=== PATIENT | male | born 1950 | race Caucasian/White ===

== ENCOUNTER → 2018-10-25 09:24 | Outpatient (CLI) | payer OTHER, SELFPAY ==
[2018-10-25 12:21] LABS: AST(SGOT) 18 U/L (15-37); Alanine Aminotransfer ALT/SGPT 29 U/L (16-61); Albumin, Serum 3.8 g/dL (3.2-5.0); Alkaline Phosphatase 87 U/L (45-117); Bilirubin, Direct 0.13 mg/dL (0.00-0.30); Cholesterol 195 mg/dL (200); Globulin 3.2 g/dL (2.2-4.2); High Density Lipoprotein 55 mg/dL; Triglycerides 99 mg/dL; Very Low Density Lipoprotein 20 mg/dL (5-40)
== END ==
PROVIDERS: Family Provider Family Medicine; PCP Family Medicine; Referring Provider Physician Assistant Medical; Visit Provider Physician Assistant Medical
DX: E78.5 Hyperlipidemia, unspecified (principal); Z79.899 Other long term (current) drug therapy
CPT/HCPCS: 36415; 80061; 80076

== ENCOUNTER → 2018-11-11 12:10 | Outpatient (CLI) | payer MEDICARE, OTHER, SELFPAY ==
[2018-11-11 14:23] LABS: Absolute Lymphocyte Count 1.21 X10^3/ul (0.83-4.51); Absolute Neutrophil Count 4.5 X10^3/uL (2.0-7.7); Basophil# 0.02 X10^3/uL; Basophil% 0.3 % (0-1); Eosinophil# 0.11 X10^3/uL; Eosinophils% 1.7 % (0-5); Hematocrit 43.9 % (40-54); Hemoglobin 14.4 g/dl (13.0-16.5); Lymphocyte # 1.21 X10^3/ul (4.0); Lymphocyte % 18.4 % (19-41); Mean Corp Hgb Conc 32.8 g/gl (32-36); Mean Corpuscular Hgb 30.9 pg (27.0-32.0); Mean Corpuscular Volume 94.2 fL (80-94); Mean Platelet Vol. 10.5 fl (6.2-12.0); Monocyte# 0.75 X10^3/uL; Monocyte% 11.4 % (0-10); Neutrophil # 4.49 X10^3/uL (2.7-7.7); Platelet Count 182 K/mm3 (150-450); RBC Distribution Width CV 14.5 % (11.6-14.6); RBC Distribution Width SD 48.4 fl (35.1-43.9); Red Blood Count 4.66 M/mm3 (4.6-6.2); White Blood Count 6.6 K/mm3 (4.4-11.0)
[2018-11-11 14:26] LABS: Cholesterol 158 mg/dL (200); High Density Lipoprotein 50 mg/dL; PSA,Total - Annual Screen 0.54 ng/mL (0.00-4.00); Triglycerides 82 mg/dL; Very Low Density Lipoprotein 16 mg/dL (5-40)
[2018-11-11 14:28] LABS: POSITIVE COUNT NO; POSITIVE DIFFERENTIAL NO; POSITIVE MORPHOLOGY NO
== END ==
PROVIDERS: Family Provider Family Medicine; PCP Family Medicine; Visit Provider Family Medicine
DX: Z00.00 Encounter for general adult medical examination without abnormal findings (principal)
CPT/HCPCS: 36415; 80061; 84153; 85025; G0103

== ENCOUNTER 2019-09-08 05:31 | Day surgery (SDC) | payer MEDICARE, OTHER, SELFPAY ==
--- NOTE | 2019-08-11 05:00 | HP_ITS ---
Intake Vital Signs 08/11/19 Height 5 ft 10 in 08/11/19 Weight: 215 lb 9 oz 08/11/19 Body Mass Index (BMI) 30.9 08/11/19 Blood Pressure 152/67 H 08/11/19 Blood Pressure Location Rt brachial 08/11/19 Respiratory Rate 20 H 08/11/19 Pulse Rate 84 08/11/19 Pulse Ox 97 Intake Visit Reasons: Hernia Chief Complaint: left inguinal pain Audit Mgr Required: No Is patient in pain?: No Allergies benzalkonium chloride [From Merthiolate (benzalkonium)] Allergy (Mild, Verified 08/11/19 15:35) rash Medications atorvastatin 10 mg tablet 10 mg PO DAILY 08/11/19 [History Confirmed 08/11/19] multivitamin,tj-sesw-zcmnoigh tablet 1 tab PO DAILY 08/11/19 [History Confirmed 08/11/19] tamsulosin 0.4 mg capsule 0.4 mg PO DAILY #30 cap 08/11/19 [Rx Confirmed 08/11/19] [facility] Medical History (Updated 08/11/19 @ 16:57 by Claus Sevilla MD) Inguinal hernia of left side without obstruction or gangrene (Acute) Hyperlipidemia (Acute) Osteoarthritis (Acute) Sleep apnea (Acute) Surgical History (Updated 08/11/19 @ 15:33 by Karen Garcia) History of appendectomy (Acute) History of arthroscopy of both knees (Acute) History of bilateral carpal tunnel release (Acute) History of bilateral cataract extraction (Acute) History of colonoscopy (Acute) History of rotator cuff surgery (Acute) Family History (Updated 08/11/19 @ 15:33 by Karen Garcia) Other Colon cancer Diabetes Heart disease Hypertension Social History (Updated 08/11/19 @ 17:00 by Claus Sevilla MD) Smoking Status: Never smoker HPI HPI HPI: ORTIZ FARIA, is a 69 M who presents to the office today for HPI HPI Surgical H&P: Yes HPI: ORTIZ FARIA, is a 69 M who presents to the office today for surgical consultation regarding left testicular pain. This is been going on for 4 to 6 months. Feels discomfort and what he feels is the left testicle but when he goes to palpate the area there is no mass or particular tenderness. He has no dysuria. He rarely has nocturia. He does note that he has history of an enlarged prostate. There is been no fever chills or sweats. His most recent colonoscopy was November 2018. By his report a small polyp was removed that was benign with a follow-up colonoscopy scheduled for 3 to 4 years. ROS General General: No weight change, appetite, fatigue, colon cancer, breast cancer or weakness HEENT HEENT: No difficulty swallowing, eye injury, eye surgery, swollen glands or hoarseness Endo Endocrine: No thyroid disease, diabetes mellitus, thyroid cancer, Hair loss, heat intolerance or cold intolerance Musc Musculoskeletal: Yes arthritis; no back problems, rheumatoid arthritis, gout or joint pain Cardio Cardiovascular: No murmur, pacemaker, heart disease, atrial fibrillation, high blood pressure, heart attack, heart stent, palpitations, shortness of breat with exertion or chest pain Resp Respiratory: No shortness of breath, Yes sleep apnea, No cough, No COPD, No asthma, No emphysema, No wheezing Gastro Gastrointestinal: No abdominal pain, No nausea or vomiting, No diarrhea, No constipation, No blood in stool, No acid reflux, No hemorrhoids, No ulcers, No gallbladder problem, No black,tarry stools Mario Hematologic: No blood thinners, No blood disorders, No bleeding, No anemia, No blood clots Neuro Neurologic: No weakness Exam Const General: cooperative, healthy appearing, comfortable, no acute distress Nutritional Appearance: overweight Orientation: alert, awake, oriented x3 HENMT Head: normal to inspection Resp Effort & Inspection: normal respiratory effort Auscultation: clear to auscultation bilaterally Cardio Rate: regular rate Rhythm: regular rhythm Heart Sounds: no murmurs GI Palpation: soft, no hepatosplenomegaly Auscultation: normal bowel sounds Other: Atrophic right testicle as compared to the left no inguinal defect on the right slightly tender indirect easily palpable defect on the left. Reducible Skin General: no rashes or lesions noted Neuro Cognition: normal cognition Extrem General: no calf tenderness Psych Affect: normal affect Assessment & Plan Problems 1. Inguinal hernia of left side without obstruction or gangrene K40.90 Plan Indirect left inguinal hernia, symptomatic The patient states that he tends to be very active soon postoperatively. I am recommending to him a laparoscopic left inguinal herniorrhaphy with mesh. The patient states that he does have enlarged prostate so I would like to start him on Flomax 0.4 mg nightly for at least 2 weeks preoperatively. We have discussed the technique, benefits, risks, alternatives. He has had an opportunity to ask and have questions answered. We will schedule and proceed at a time of his discretion. [place] weeks. CC: Dr. Bhavik Sevilla M.D., F.A.C.S. Medications New: tamsulosin (Flomax) 0.4 mg PO DAILY 30 caps 0RF Coding Level of Care Code Off vis,new,level 3 Diagnoses Inguinal hernia of left side without obstruction or gangrene K40.90 08/11/19 1700 <Electronically signed by Claus damon MD> Date _ Claus Sevilla MD I have re-examined the patient. There are no clinical changes since date of exam.
[2019-08-11 15:33] VITALS: BMI 30.9
--- NOTE | 2019-09-04 09:44 | EKG12_ITS ---
Test Reason : PRE OP Blood Pressure : / mmHG Vent. Rate : 049 BPM Atrial Rate : 049 BPM P-R Int : 180 ms QRS Dur : 106 ms QT Int : 432 ms P-R-T Axes : 059 006 025 degrees QTc Int : 390 ms Marked sinus bradycardia Abnormal ECG Confirmed by VALERIY CHOI, JABARI ([id number]), film editor supervisor SUSANNE GOINS ([id number]) on 09/08/2019 8:36:02 AM Referred By: Claus Sevilla Confirmed By:IRMA CROOKS MD
[2019-09-04 10:56] LABS: Hematocrit 43.7 % (40-54); Hemoglobin 14.2 g/dL (13.0-16.5); Mean Corp Hgb Conc 32.5 g/dL (32-36); Mean Corpuscular Hgb 31.1 pg (27.0-32.0); Mean Corpuscular Volume 95.8 fL (80-94); Mean Platelet Vol. 10.4 fl (6.2-12.0); Platelet Count 174 K/mm3 (150-450); RBC Distribution Width CV 13.6 % (11.6-14.6); RBC Distribution Width SD 47.9 fl (35.1-43.9); Red Blood Count 4.56 M/mm3 (4.6-6.2); White Blood Count 4.4 K/mm3 (4.4-11.0)
[2019-09-04 11:20] LABS: AST(SGOT) 22 U/L (15-37); Alanine Aminotransfer ALT/SGPT 26 U/L (16-61); Albumin, Serum 3.8 g/dL (3.2-5.0); Alkaline Phosphatase 77 U/L (45-117); Anion Gap 9 (5-15); BUN 22 mg/dL (7-18); BUN/Creat Ratio 20.6 RATIO (10-20); Bilirubin, Direct 0.11 mg/dL (0.00-0.30); Calcium,Total 9.1 mg/dL (8.5-10.1); Chloride 106 mmol/L (98-107); Creatinine, Serum 1.07 mg/dL (0.70-1.30); EST Glomerular Filtration Rate 73 mL/min (>60); Est Glom Filt Rate - Afr Amer 88 mL/min (>60); Globulin 3.5 g/dL (2.2-4.2); Glucose 109 mg/dL (74-106); Potassium 4.2 mmol/L (3.5-5.1); Protein, Total 7.3 g/dL (6.4-8.2); Sodium Level 144 mmol/L (136-145)
[2019-09-08] VITALS (7 sets, daily range): BP systolic 107–133; BP diastolic 64–71; PULSE 46–53; RESP 16–18; TEMP 36.1–36.6; O2SAT 95–100; BMI 32.5
[2019-09-08] MEDS: Lactated Ringers 1,000 ML 100 ML IV ×2 (06:04→08:00)
[2019-09-08] MEDS: Cefazolin 2 GM in 0.9% Normal Saline 100 ML IV (07:03)
--- NOTE | 2019-09-08 07:08 | PCM.DC.GS ---
Discharge Diet: Light diet - advance as tolerated - if you have questions about your diet instructions, please talk to you doctor. Discharge Activity: May Not Drive - for 3-5 days or while taking narcotic pain medicine. May shower in (days): 1 Lifting Restrictions: 10 pounds Call your doctor if your incision/area has: Continuous Slow Oozing, Sudden Increased Bleeding, Increased Pain/ Swelling, Increased Redness, Foul Smelling Discharge Call your doctor if you observe: Fever of 101 or Higher Suture Line Care: Avoid Pulling/Pushing, Avoid Pinching/Bending Additional Dressing/Incision Instructions:: Change or remove dressing in 4 days. Leave steri-strips in place for 1 week. Additional Instructions: Starting today please initiate a daily fiber supplementation like Metamucil, Citrucel, FiberCon, or generic. A large tablespoon with a full glass of water. Please continue this daily in order to avoid constipation. Allergies/Adverse Reactions: Allergies benzalkonium chloride [From Merthiolate (benzalkonium)] Allergy (Mild, Verified 09/08/19 05:50) rash Medications to take at Discharge atorvastatin 10 mg tablet 10 mg PO DAILY 08/11/19 multivitamin,qx-voia-aahbuhhu tablet 1 tab PO DAILY 08/11/19 tamsulosin 0.4 mg capsule 0.4 mg PO DAILY #30 cap 08/11/19 Hydrocodone Bitart/Apap 5-325 [[place] 5MG-325MG] 1 tablet PO Q4H PRN PRN 3 Days #10 tablet 09/08/19 The following prescriptions were given: Hydrocodone Bitart/Apap 5-325 [[place] 5MG-325MG] 1 tablet PO Q4H PRN PRN 3 Days #10 tablet PRN Reason: Pain Transmission Status: Received by [id number] Orders to be completed after discharge: 12 Lead EKG [[facility]] Time Frame: 09/01/19, Facility: [facility], Location: Cardiovascular Services Basic Metabolic Profile (BMP) Time Frame: 09/01/19, Facility: [facility], Location: Laboratory CBC-Complete Blood Cnt No Diff Time Frame: 09/01/19, Facility: [facility], Location: Laboratory Liver Profile Time Frame: 09/01/19, Facility: [facility], Location: Laboratory Primary Care Physician: Bhavik Wall MD [Primary Care Provider] - Test Results: Test results from this visit will be discussed in further detail at your follow-up appointment, if applicable. Please Follow Up With: Claus Sevilla MD - [phone] When: Call to make an appointment to be seen in about 7-10 days.
--- NOTE | 2019-09-08 07:15 | HERN_PTH ---
PATIENT: ORTIZ FARIA [place] [facility] [id number] AGE/SX: 69/M ROOM: RE09/08/[address]: Dr. Claus Sevilla MD : 1950 BED: DIS: 09/08/2019 SPEC #: [id number] RECD: 09/08/19 13:58 STATUS: SAMANTHA DORIS #: [id number] RANDY: 09/08/19 07:[address]: Claus Sevilla DEPT: SURGICAL PATHOLOGY RECD BY: Glenis Lima ENTERED: 09/08/19 14:19 SP TYPE: Hernia OTHR DR: MD Dr. Bhavik Torres MD Tissues: HERNIA Procedures: Surgery Specimen Level II HEADER OPERATION: Laparoscopic, inguinal hernia repair PRE-OP DIAGNOSIS: Inguinal hernia of left side without obstruction or gangrene TISSUE SUBMITTED: Hernia sac and contents MICROSCOPIC DIAGNOSIS Hernia sac and contents: Fragments of fibroadipose and fibroconnective tissue, consistent with hernia sac. SABI:jono 09/09/19 MICROSCOPIC DESCRIPTION Slides are reviewed. GROSS DESCRIPTION Received in fixative is one container labeled with the patient's name and designated hernia sac and contents. The specimen consists of multiple pieces of adipose tissue that in aggregate measure 3 x 1 x 0.3 cm. The entire specimen is submitted in one cassette. / SABI:jono 09/08/19 TC:5 CPT: 28240
[2019-09-08] MEDS: Bupivacaine Mpf 0.5% 30 ML VIAL (08:00)
--- NOTE | 2019-09-08 08:13 | OP.PCM_ITS ---
Problem List (1) Inguinal hernia of left side without obstruction or gangrene Status: Acute (2) Umbilical hernia without obstruction or gangrene Status: Acute Report of Operation Date of Procedure: 09/08/19 Pre-Operative Diagnosis: Symptomatic left inguinal hernia Post-Operative Diagnosis: Symptomatic direct left inguinal hernia, umbilical hernia Surgery/Procedure Performed:: Laparoscopic left inguinal herniorrhaphy. Bard 3D max mesh lot [id number], reference #[id number], expiry date 04/01/2024. Umbilical herniorrhaphy Description of Surgical Findings:: Timeout and informed consent was obtained. 69-year-old gentleman was taken to the operating placement table underwent general endotracheal intubation anesthesia. Ancef 2 g given intravenously preoperatively. The abdomen sterilely prepped draped. 0.5% Marcaine was used as a local anesthetic. Throughout the procedure total 30 cc was used. Skin sites were pre- anesthetized. A vertical incision was made at the umbilicus. Sharp dissection carried down through the subcutaneous tissue and umbilical hernia with preperitoneal fat was encountered. This was circumferentially dissected free. Holding sutures of 0 Vicryl placed. Varies needle inserted. The abdomen was insufflated with CO2 to a pressure of 10 mmHg pressure after a normal saline drop test was performed. Telemeter trocar was inserted. 10 lap scope inserted. No evidence of any trocar injuries. Under direct visualization the abdomen was inspected. There were no significant adhesions. Very small indent noted to the right internal ring. Evidence of a direct left inguinal hernia. The remainder of the superficial abdominal structures unremarkable. 5 mm trocar was placed in the left lower quadrant and right lower quadrant. A ilioinguinal nerve block was performed under laparoscopic visualization. The peritoneum superior and medial to the internal ring was incised and carried laterally. The peritoneum was then carefully dissected free. The dissection allowed for visualization of the pubic tubercle direct indirect space and femoral area. Good visualization was achieved with clear view of the direct hernia. A Bard 3D max mesh large was placed so as to cover the defect area. It was carefully positioned so as to cover the direct indirect and femoral area. It was secured medially superiorly and laterally with secure strap. Excellent positioning was achieved. The peritoneum was then approximated to itself with secure strap. Complete obliteration to the mesh was achieved. Trochars were removed. The abdomen was allowed to deflate of the CO2. The 2 cm umbilical hernia defect was now approximated with simple sutures of 0 Nurolon transversely. Good approximation was achieved. Skin edges were approximate interrupted 4-0 Monocryl subdermal stitches. Steri-Strips Telfa OpSite dressings applied. Sponge and instrument and needle counts were reported to the surgeon to be correct. Specimen umbilical hernia sac contents. Drains none. Blood loss minimal. The patient was taken to the recovery area in satisfactory condition without apparent complication. Claus Sevilla M.D., F.A.C.S. Type of Anesthesia:: General Anesthesiologist: Eduard Linares
== END 2019-09-08 10:40 | disposition home or self-care (01) ==
LOC: SDC 05:32 → AC 05:33
PROVIDERS: Family Provider Family Medicine; PCP Family Medicine; Referring Provider Surgery; Visit Provider Surgery
PROC: (CPT 49650; principal; 2019-09-08 06:55)
DX: K40.90 Unilateral inguinal hernia, without obstruction or gangrene, not specified as recurrent (principal); K42.9 Umbilical hernia without obstruction or gangrene; E78.5 Hyperlipidemia, unspecified; M19.90 Unspecified osteoarthritis, unspecified site; G47.30 Sleep apnea, unspecified; E66.3 Overweight; Z68.30 Body mass index [BMI] 30.0-30.9, adult; Z79.899 Other long term (current) drug therapy
CPT/HCPCS: 49585; 49650; 36415; 80048; 80076; 85027; 88302; 93005; J7120; C1781; J2405

== ENCOUNTER → 2020-03-09 | Outpatient (CLI) | payer MEDICARE, OTHER, SELFPAY ==
[2020-03-09 12:19] VITALS: BMI 30.2
[2020-03-09 15:43] LABS: AST(SGOT) 60 U/L (15-37); Alanine Aminotransfer ALT/SGPT 88 U/L (16-61); Albumin, Serum 3.7 g/dL (3.2-5.0); Alkaline Phosphatase 122 U/L (45-117); Bilirubin, Direct 0.13 mg/dL (0.00-0.30); Cholesterol 164 mg/dL (200); Globulin 3.6 g/dL (2.2-4.2); High Density Lipoprotein 34 mg/dL; Protein, Total 7.3 g/dL (6.4-8.2); Triglycerides 386 mg/dL; Very Low Density Lipoprotein 77 mg/dL (5-40)
[2020-03-09 16:38] LABS: PSA,Total - Annual Screen 0.41 ng/mL (0.00-4.00)
== END | disposition home or self-care (01) ==
LOC: LAB 14:33
PROVIDERS: PCP Family Medicine; Referring Provider Internal Medicine Cardiovascular Disease; Visit Provider Internal Medicine Cardiovascular Disease
DX: E78.5 Hyperlipidemia, unspecified (principal); R09.89 Other specified symptoms and signs involving the circulatory and respiratory systems; Z12.5 Encounter for screening for malignant neoplasm of prostate
CPT/HCPCS: 36415; 80061; 80076; 84153; G0103

== ENCOUNTER → 2020-03-25 07:59 | Outpatient (CLI) | payer MEDICARE, OTHER, SELFPAY ==
[2020-03-09 12:19] VITALS: BMI 30.2
--- NOTE | 2020-03-25 08:05 | US_ITS ---
STUDY: ABDOMINAL ULTRASOUND - RIGHT UPPER QUADRANT REASON FOR VISIT: Male, 69 years old TRANSAMINITIS TECHNIQUE: Ultrasound evaluation of the right upper quadrant was performed with real-time and static purcell-scale imaging. TECHNICAL QUALITY: Adequate. COMPARISON: None. FINDINGS: Liver: The liver measures 15.7 cm. There is normal echogenicity of the liver. The bile ducts are within normal limits. There is hepatic color flow. The direction of portal flow is hepatopetal. There is no demonstrated mass lesion. Gallbladder: Normal distended gallbladder. The gallbladder wall measures 3 mm. There is a negative sonographic Schrader''s sign. There is no pericholecystic fluid. There are no gallstones. Common Bile Duct (C.B.D.): The common bile duct measures 2 mm. Pancreas: Normal size of the head, body and tail of the pancreas. There is normal echogenicity of the pancreas. There is no demonstrated pancreatic mass or cyst. Right Kidney: Normal size of the right kidney. The right kidney measures 11.6 cm. Normal renal cortex. The right cortex measures 1.9 cm. There is no demonstrated renal mass or cyst. There is no right hydronephrosis. US/Abdomen Limited IMPRESSION: Normal right upper quadrant ultrasound examination. Electronically Signed: Seymour Gaona MD at 16:57 EDT , Service support ,
[2020-03-25 09:40] LABS: ALB/GLOB Ratio 1.1 RATIO (0.9-2.4); AST(SGOT) 75 U/L (15-37); Alanine Aminotransfer ALT/SGPT 104 U/L (16-61); Albumin, Serum 3.6 g/dL (3.2-5.0); Alkaline Phosphatase 115 U/L (45-117); Anion Gap 4 (5-15); BUN 21 mg/dL (7-18); BUN/Creat Ratio 26.1 RATIO (10-20); Calcium,Total 8.8 mg/dL (8.5-10.1); Chloride 110 mmol/L (98-107); EST Glomerular Filtration Rate 101 mL/min (>60); Est Glom Filt Rate - Afr Amer 122 mL/min (>60); Globulin 3.3 g/dL (2.2-4.2); Glucose 104 mg/dL (74-106); Potassium 3.9 mmol/L (3.5-5.1); Protein, Total 6.9 g/dL (6.4-8.2); Sodium Level 141 mmol/L (136-145)
[2020-03-25 09:57] LABS: Hepatitis B Surface Antigen Non-Reactive (Nonreactive)
[2020-04-04 03:06] LABS: HCV Quant. RNA PCR HCV Not Detected IU/mL (.)
[2020-04-05 00:20] LABS: AFP, Tumor Marker 1.5 ng/mL (0.0-8.3)
== END ==
PROVIDERS: PCP Family Medicine; Referring Provider Family Medicine; Visit Provider Family Medicine
DX: B18.2 Chronic viral hepatitis C (principal); R74.0 Nonspecific elevation of levels of transaminase and lactic acid dehydrogenase [LDH]
CPT/HCPCS: 36415; 76705; 80053; 82105; 87340; 87522

== ENCOUNTER → 2020-05-13 | Outpatient (CLI) | payer MEDICARE, OTHER, SELFPAY ==
[2020-03-09 12:19] VITALS: BMI 30.2
[2020-05-13 13:12] LABS: Prothrombin Time (Protime)PT. 13.1 SECONDS (11.7-14.9)
[2020-05-13 13:26] LABS: AST(SGOT) 30 U/L (15-37); Alanine Aminotransfer ALT/SGPT 45 U/L (16-61); Albumin, Serum 3.8 g/dL (3.2-5.0); Alkaline Phosphatase 83 U/L (45-117); Bilirubin, Direct 0.21 mg/dL (0.00-0.30); Cholesterol 217 mg/dL (200); Ferritin 179 ng/mL (26-388); GGTP 53 U/L (15-85); Globulin 3.4 g/dL (2.2-4.2); High Density Lipoprotein 62 mg/dL; Protein, Total 7.2 g/dL (6.4-8.2); Triglycerides 87 mg/dL; Very Low Density Lipoprotein 17 mg/dL (5-40)
[2020-05-14 21:13] LABS: ANTINUCLEAR ANTIBODIES DIRECT Negative (Negative)
[2020-05-14 21:14] LABS: Anti-Smooth Muscle ABS 10 Units (0-19)
== END | disposition home or self-care (01) ==
PROVIDERS: PCP Family Medicine; Referring Provider Internal Medicine Gastroenterology; Visit Provider Internal Medicine Gastroenterology
DX: K75.9 Inflammatory liver disease, unspecified (principal)
CPT/HCPCS: 36415; 80061; 80076; 82728; 82977; 83516; 85610; 86038

== ENCOUNTER → 2021-03-08 09:56 | Outpatient (CLI) | payer MEDICARE, OTHER, SELFPAY ==
[2021-03-08 07:01] VITALS: BMI 29.8
[2021-03-08 11:50] LABS: AST(SGOT) 26 U/L (15-37); Alanine Aminotransfer ALT/SGPT 31 U/L (16-61); Alkaline Phosphatase 88 U/L (45-117); Bilirubin, Direct 0.19 mg/dL (0.00-0.30); Cholesterol 196 mg/dL (200); Globulin 3.2 g/dL (2.2-4.2); High Density Lipoprotein 60 mg/dL; Protein, Total 7.2 g/dL (6.4-8.2); Triglycerides 98 mg/dL; Very Low Density Lipoprotein 20 mg/dL (5-40)
== END ==
PROVIDERS: PCP Family Medicine; Referring Provider Internal Medicine Cardiovascular Disease; Visit Provider Internal Medicine Cardiovascular Disease
DX: E78.00 Pure hypercholesterolemia, unspecified (principal)
CPT/HCPCS: 36415; 80061; 80076

== ENCOUNTER → 2021-03-14 06:02 | Outpatient (CLI) | payer MEDICARE, OTHER, SELFPAY ==
[2021-03-08 07:01] VITALS: BMI 29.8
--- NOTE | 2021-03-14 11:25 | STRESSREP_ITS ---
Stress Test Report Exercise myocardial perfusion stress test. 70-year-old man with a history of coronary artery risk factors. Stress protocol: Resting EKG demonstrates sinus bradycardia with a rate of 46 bpm normal intervals are noted resting blood pressure is 132/72 mmHg. The patient exercised according to regular Rosas protocol for a total duration of 10 m inutes. Patient completed 1 minute into stage IV of the Rosas protocol. The maximum heart rate attained was 146 bpm which was 97% of maximum predicted heart rate the maximum workload was 11.7 metabolic equivalents. At rest there were no ST or T wave changes noted to suggest ischemia and at peak exercise upsloping ST changes were noted with did not meet the criteria for ischemia. No clinical an williams was noted. The test was terminated due to dyspnea and attainment of target heart rate. The peak blood pressure was 222/70 mmHg. This was a hypertensive response to exercise. Rate-pressure product was 25,400. Myocardial perfusion protocol. 12.0 mCi of technetium 99m sestamibi was injected at rest. The patient exercised for a total duration of 10 minutes and at peak exercise 34.5 mCi of t echnetium 99m sestamibi was injected stress images were obtained stress and rest images were reconstructed and compared in the short axis vertical long and horizontal long axis. Gated images were also obtained. Perfusion SPECT analysis: Review of the stress images demonstrate normal uptake of tracer noted in all areas of the myocardium. The resting images similarly demonstrate normal uptake of tracer noted in all areas of the myocardium. No areas of reversibility are noted to suggest ischemia and no previous infarct is noted. Gated SPECT analysis: The gated ejection fraction is 61%. Conclusion: Normal exercise myocardial perfusion stress test at a high workload. Preserved ejection fraction. Good functional capacity.
== END ==
PROVIDERS: PCP Family Medicine; Referring Provider Internal Medicine Cardiovascular Disease; Visit Provider Internal Medicine Cardiovascular Disease
DX: I25.10 Atherosclerotic heart disease of native coronary artery without angina pectoris (principal)
CPT/HCPCS: 78452; 93017; A9500; A4216

== ENCOUNTER → 2022-03-07 | Outpatient (CLI) | payer MEDICARE, OTHER, SELFPAY ==
--- NOTE | 2022-03-07 08:18 | CT_ITS ---
STUDY: CT LEFT LOWER EXTREMITY WITHOUT CONTRAST REASON FOR EXAM: Varus deformity of the left knee, surgical planning. TECHNIQUE: Transaxial CT imaging of the lower extremity was performed. Coronal and sagittal images were reformatted. Individualized dose optimization techniques were used for this CT. COMPARISON: None. FINDINGS: Knee: There are marginal osteophytes, subchondral eburnation and joint space narrowing of the medial femorotibial compartment (coronal reconstruction 33). There are small marginal osteophytes with preservation of joint space of the lateral femorotibial compartment. There are marginal osteophytes with mild joint space narrowing of the patellofemoral compartment (axial image 297). There is arthrosis of the proximal tibiofibular articulation (coronal reconstruction 36). There is a joint effusion. There is a bipartite patella (coronal reconstruction 10). There is vascular calcification. Hip: There are small marginal of the femoral head, subchondral cystic change of the lateral acetabulum and lateral femoral head, and joint space narrowing of the left hip (coronal reconstructions 54). Ankle: Normal tibiotalar, posterior subtalar, talonavicular and calcaneocuboid articulations. There is a small ossicle at the anterior superior calcaneal process (sagittal reconstruction 21). There are small posterior and plantar calcaneal enthesophytes. There is mild fusiform thickening of the Achilles tendon (sagittal reconstruction 27) suggestive of mild tendinosis. CT/Extremity Lower without Contra IMPRESSION: Left knee osteoarthritis. Electronically Signed: Torsten Fitzgerald MD at 15:00 EDT ,
[2022-03-07 10:14] LABS: AST(SGOT) 20 U/L (15-37); Alanine Aminotransfer ALT/SGPT 27 U/L (16-61); Albumin, Serum 3.7 g/dL (3.2-5.0); Alkaline Phosphatase 85 U/L (45-117); Bilirubin, Direct 0.15 mg/dL (0.00-0.30); Cholesterol 185 mg/dL (200); Globulin 3.2 g/dL (2.2-4.2); High Density Lipoprotein 62 mg/dL; Protein, Total 6.9 g/dL (6.4-8.2); Triglycerides 82 mg/dL; Very Low Density Lipoprotein 16 mg/dL (5-40)
== END | disposition home or self-care (01) ==
PROVIDERS: Internal Medicine Cardiovascular Disease; PCP Family Medicine; Referring Provider Specialist; Visit Provider Specialist
DX: M21.162 Varus deformity, not elsewhere classified, left knee (principal); M25.562 Pain in left knee; G89.29 Other chronic pain; E78.00 Pure hypercholesterolemia, unspecified; E78.5 Hyperlipidemia, unspecified
CPT/HCPCS: 36415; 73700; 80061; 80076

== ENCOUNTER → 2022-03-14 | Outpatient (CLI) | payer MEDICARE, OTHER, SELFPAY ==
--- NOTE | 2022-03-14 08:51 | EKG12_ITS ---
Test Reason : PRE-OP Blood Pressure : / mmHG Vent. Rate : 051 BPM Atrial Rate : 051 BPM P-R Int : 186 ms QRS Dur : 094 ms QT Int : 410 ms P-R-T Axes : 061 023 035 degrees QTc Int : 377 ms Sinus bradycardia Otherwise normal ECG Confirmed by LIAN CHOI, PRABHAKAR ([id number]), sports editor SUSANNE GOINS ([id number]) on 03/15/2022 11:14:05 AM Referred By: Asa Gore Confirmed By:PRABHAKAR BEAL MD
[2022-03-14 10:16] LABS: Absolute Lymphocyte Count 1.87 X10^3/uL (0.83-4.51); Basophil# 0.02 X10^3/uL; Basophil% 0.4 % (0-1); Eosinophil# 0.04 X10^3/uL; Eosinophils% 0.7 % (0-5); Hemoglobin 13.8 g/dL (13.0-16.5); Lymphocyte # 1.87 X10^3/ul (0.83-4.51); Lymphocyte % 34.2 % (19-41); Mean Corp Hgb Conc 32.9 g/dL (32-36); Mean Corpuscular Hgb 31.4 pg (27.0-32.0); Mean Corpuscular Volume 95.5 fL (80-94); Mean Platelet Vol. 10.1 fl (6.2-12.0); Monocyte# 0.56 X10^3/uL; Monocyte% 10.2 % (0-10); NRBC Flagged by Analyzer 0 % (0-5); Neutrophil # 2.97 X10^3/uL (2.7-7.7); Neutrophil % 54.3 % (47-70); Platelet Count 184 K/mm3 (150-450); RBC Distribution Width CV 13.5 % (11.6-14.6); RBC Distribution Width SD 47.6 fl (35.1-43.9); White Blood Count 5.5 K/mm3 (4.4-11.0)
[2022-03-14 11:36] LABS: Albumin, Serum 3.8 g/dL (3.2-5.0); Anion Gap 6 (5-15); BUN 23 mg/dL (7-18); BUN/Creat Ratio 25.6 RATIO (10-20); Calcium,Total 9.6 mg/dL (8.5-10.1); Chloride 106 mmol/L (98-107); EST Glomerular Filtration Rate 88 mL/min (>60); Est Glom Filt Rate - Afr Amer 107 mL/min (>60); Glucose 85 mg/dL (74-106); Sodium Level 140 mmol/L (136-145)
== END | disposition home or self-care (01) ==
LOC: PSN 08:45
PROVIDERS: PCP Family Medicine; Referring Provider Physician Assistant Surgical; Visit Provider Physician Assistant Surgical
DX: Z01.818 Encounter for other preprocedural examination (principal); Z01.810 Encounter for preprocedural cardiovascular examination; Z12.5 Encounter for screening for malignant neoplasm of prostate
CPT/HCPCS: 36415; 80048; 82040; 84153; 85025; 93005; G0103

== ENCOUNTER → 2022-05-24 | Outpatient (CLI) | payer MEDICARE, OTHER, SELFPAY ==
[2022-05-24 10:44] LABS: Absolute Lymphocyte Count 1.62 X10^3/uL (0.83-4.51); Absolute Neutrophil Count 3.3 X10^3/uL (2.0-7.7); Basophil# 0.01 X10^3/uL; Basophil% 0.2 % (0-1); Eosinophil# 0.08 X10^3/uL; Eosinophils% 1.4 % (0-5); Hematocrit 42.1 % (40-54); Hemoglobin 13.6 g/dL (13.0-16.5); Lymphocyte # 1.62 X10^3/ul (0.83-4.51); Lymphocyte % 29.2 % (19-41); Mean Corp Hgb Conc 32.3 g/dL (32-36); Mean Corpuscular Hgb 30.6 pg (27.0-32.0); Mean Corpuscular Volume 94.6 fL (80-94); Mean Platelet Vol. 9.9 fl (6.2-12.0); Monocyte# 0.53 X10^3/uL; Monocyte% 9.5 % (0-10); NRBC Flagged by Analyzer 0 % (0-5); Neutrophil # 3.29 X10^3/uL (2.7-7.7); Neutrophil % 59.3 % (47-70); Platelet Count 201 K/mm3 (150-450); RBC Distribution Width CV 13.5 % (11.6-14.6); RBC Distribution Width SD 47.1 fl (35.1-43.9); Red Blood Count 4.45 M/mm3 (4.6-6.2); White Blood Count 5.6 K/mm3 (4.4-11.0)
[2022-05-24 11:09] LABS: Albumin, Serum 3.7 g/dL (3.2-5.0); Anion Gap 7 (5-15); BUN 24 mg/dL (7-18); BUN/Creat Ratio 27.7 RATIO (10-20); Calcium,Total 9.5 mg/dL (8.5-10.1); Chloride 107 mmol/L (98-107); Creatinine, Serum 0.87 mg/dL (0.70-1.30); EST Glomerular Filtration Rate 92 mL/min (>60); Est Glom Filt Rate - Afr Amer 111 mL/min (>60); Glucose 98 mg/dL (74-106); Potassium 3.8 mmol/L (3.5-5.1); Sodium Level 140 mmol/L (136-145)
== END | disposition home or self-care (01) ==
LOC: LAB 08:26
PROVIDERS: PCP Family Medicine; Referring Provider Specialist; Visit Provider Specialist
DX: Z01.818 Encounter for other preprocedural examination (principal)
CPT/HCPCS: 36415; 80048; 82040; 85025

== ENCOUNTER → 2023-03-08 | Outpatient (CLI) | payer MEDICARE, OTHER, SELFPAY ==
[2023-03-08 13:16] LABS: AST(SGOT) 34 U/L (15-37); Alanine Aminotransfer ALT/SGPT 40 U/L (16-61); Albumin, Serum 4.1 g/dL (3.2-5.0); Alkaline Phosphatase 89 U/L (45-117); Bilirubin, Direct 0.18 mg/dL (0.00-0.30); Cholesterol 204 mg/dL (200); Globulin 3.3 g/dL (2.2-4.2); High Density Lipoprotein 61 mg/dL; Protein, Total 7.4 g/dL (6.4-8.2); Thyroid Stim Hormone (TSH) 2.08 uIU/mL (0.358-3.74); Triglycerides 125 mg/dL; Very Low Density Lipoprotein 25 mg/dL (5-40)
== END | disposition home or self-care (01) ==
LOC: LAB 12:08
PROVIDERS: PCP Family Medicine; Referring Provider Internal Medicine Cardiovascular Disease; Visit Provider Internal Medicine Cardiovascular Disease
DX: Z01.810 Encounter for preprocedural cardiovascular examination (principal); E78.00 Pure hypercholesterolemia, unspecified; G47.33 Obstructive sleep apnea (adult) (pediatric)
CPT/HCPCS: 36415; 80061; 80076; 84443

== ENCOUNTER → 2023-04-11 | Outpatient (CLI) | payer MEDICARE, OTHER, SELFPAY ==
[2023-04-11 15:47] LABS: Hematocrit 44.9 % (40-54); Hemoglobin 14.8 g/dL (13.0-16.5); Mean Corpuscular Hgb 30.9 pg (27.0-32.0); Mean Corpuscular Volume 93.7 fL (80-94); Mean Platelet Vol. 10.5 fl (6.2-12.0); Platelet Count 189 K/mm3 (150-450); RBC Distribution Width CV 13.2 % (11.6-14.6); RBC Distribution Width SD 45.4 fl (35.1-43.9); Red Blood Count 4.79 M/mm3 (4.6-6.2)
[2023-04-11 15:56] LABS: Partial Thromboplast Time 31.3 Seconds (24.1-36.2); Prothrombin Time (Protime)PT. 13.6 SECONDS (11.7-14.9)
== END | disposition home or self-care (01) ==
LOC: MFPLAB 12:02
PROVIDERS: PCP Family Medicine; Visit Provider Family Medicine
DX: R23.3 Spontaneous ecchymoses (principal); Z12.5 Encounter for screening for malignant neoplasm of prostate
CPT/HCPCS: 36415; 84153; 85027; 85610; 85730; G0103

== ENCOUNTER 2024-05-29 15:42 | Outpatient (CLI) | payer MEDICARE, OTHER, SELFPAY ==
[2024-05-29 16:17] LABS: Absolute Lymphocyte Count 1.91 X10^3/uL (0.83-4.51); Absolute Neutrophil Count 3.2 X10^3/uL (2.0-7.7); Basophil# 0.02 X10^3/uL; Basophil% 0.3 % (0-1); Eosinophil# 0.12 X10^3/uL; Eosinophils% 2.1 % (0-5); Hematocrit 43.5 % (40-54); Hemoglobin 14.4 g/dL (13.0-16.5); Lymphocyte # 1.91 X10^3/ul (0.83-4.51); Lymphocyte % 32.6 % (19-41); Mean Corp Hgb Conc 33.1 g/dL (32-36); Mean Corpuscular Hgb 30.8 pg (27.0-32.0); Mean Corpuscular Volume 92.9 fL (80-94); Mean Platelet Vol. 9.7 fl (6.2-12.0); Monocyte# 0.59 X10^3/uL; Monocyte% 10.1 % (0-10); NRBC Flagged by Analyzer 0 % (0-5); Neutrophil % 54.7 % (47-70); Platelet Count 204 K/mm3 (150-450); Red Blood Count 4.68 M/mm3 (4.6-6.2); White Blood Count 5.9 K/mm3 (4.4-11.0)
[2024-05-29 16:58] LABS: AST(SGOT) 29 U/L (15-37); Alanine Aminotransfer ALT/SGPT 38 U/L (16-61); Albumin, Serum 3.7 g/dL (3.2-5.0); Alkaline Phosphatase 82 U/L (45-117); Anion Gap 5 (5-15); BUN 18 mg/dL (7-18); BUN/Creat Ratio 19.1 RATIO (10-20); Bilirubin, Direct 0.12 mg/dL (0.00-0.30); Calcium,Total 9.1 mg/dL (8.5-10.1); Chloride 108 mmol/L (98-107); Cholesterol 201 mg/dL (200); Creatinine, Serum 0.94 mg/dL (0.70-1.30); EST Glomerular Filtration Rate 83 mL/min (>60); Est Glom Filt Rate - Afr Amer 101 mL/min (>60); Globulin 3.4 g/dL (2.2-4.2); Glucose 97 mg/dL (74-106); High Density Lipoprotein 53 mg/dL; PSA,Total - Annual Screen 0.53 ng/mL (0.00-4.00); Potassium 3.7 mmol/L (3.5-5.1); Protein, Total 7.1 g/dL (6.4-8.2); Sodium Level 140 mmol/L (136-145); Thyroid Stim Hormone (TSH) 2.07 uIU/mL (0.358-3.74); Triglycerides 186 mg/dL; Very Low Density Lipoprotein 37 mg/dL (5-40)
== END 2024-05-29 23:59 | disposition home or self-care (01) ==
PROVIDERS: PCP Family Medicine; Referring Provider Internal Medicine Cardiovascular Disease; Visit Provider Internal Medicine Cardiovascular Disease
DX: Z12.5 Encounter for screening for malignant neoplasm of prostate (principal); I25.10 Atherosclerotic heart disease of native coronary artery without angina pectoris; E78.5 Hyperlipidemia, unspecified; G47.30 Sleep apnea, unspecified
CPT/HCPCS: 36415; 80048; 80061; 80076; 84153; 84443; 85025; G0103

== ENCOUNTER → 2025-06-23 | Outpatient (CLI) | payer MEDICARE, OTHER, SELFPAY ==
[2025-06-23 10:12] LABS: Hematocrit 41.6 % (40-54); Hemoglobin 13.7 g/dL (13.0-16.5); Immature Granulocytes Count 0.000 X10^3/uL (0.0-0.0); Mean Corp Hgb Conc 32.9 g/dL (32-36); Mean Corpuscular Volume 95.6 fL (80-94); Mean Platelet Vol. 10.0 fl (6.2-12.0); NRBC Flagged by Analyzer 0 % (0-5); Platelet Count 177 K/mm3 (150-450); RBC Distribution Width CV 13.1 % (11.6-14.6); RBC Distribution Width SD 46.5 fl (35.1-43.9); Red Blood Count 4.35 M/mm3 (4.6-6.2); White Blood Count 4.1 K/mm3 (4.4-11.0)
[2025-06-23 10:56] LABS: AST(SGOT) 32 U/L (<=37); Alanine Aminotransfer ALT/SGPT 25 U/L (<=46); Albumin, Serum 4.2 g/dL (3.4-4.8); Alkaline Phosphatase 83 U/L (40-129); Anion Gap 11 (5-15); BUN 22 mg/dL (4-19); BUN/Creat Ratio 22.8 RATIO (10-20); Calcium,Total 9.4 mg/dL (7.6-11.0); Carbon Dioxide 25.0 mmol/L (21.0-32.0); Chloride 106 mmol/L (98-108); Cholesterol 197 mg/dL (<=200); Globulin 2.6 g/dL (2.2-4.2); Glucose 112 mg/dL (70-99); Low Density Lipoprotein Calc. 120 mg/dL; Potassium 4.4 mmol/L (3.3-5.1); Triglycerides 113 mg/dL; Very Low Density Lipoprotein 23 mg/dL (5-40); cholesterol:hdl ratio screen 3.61
== END | disposition home or self-care (01) ==
PROVIDERS: PCP Family Medicine; Referring Provider Family Medicine; Visit Provider Family Medicine
DX: Z01.818 Encounter for other preprocedural examination (principal); E78.5 Hyperlipidemia, unspecified
CPT/HCPCS: 36415; 80053; 80061; 85025

== ENCOUNTER → 2025-10-22 | Outpatient (CLI) | payer MEDICARE, OTHER, SELFPAY ==
--- OUTSIDE RECORDS SUMMARY | 2025-10-22 06:17 | XMS RPT_ITS | CCD ---
Author Organization [facility] Care Team Providers Care Metal Miner Name Role Phone Rain CAMILO, Celena Tristan Unavailable Unavailable Janett Huerta Unavailable Unavailable Rain CAMILO, Celena Tristan Unavailable Unavailable SAHRA Drake, Patience Daigle Unavailable Wong CHOI, Christos Doran Unavailable [phone] Tra Wolfe MD Unavailable [phone] Bhavik Wall MD Unavailable Bhavik Wall Primary Care Unavailable Bhavik Wall Referring Unavailable Keenan Zhu Attending Unavailable Bhavik Wall Primary Care Unavailable Bhavik Wall Attending Unavailable Bhavik Wall Referring Unavailable [facility] Bhavik Primary Care Unavailable Keenan Zhu Attending Unavailable Keenan Zhu Referring Unavailable Allergies Allergy Classification Reported Allergen(s) Allergy Type Date of Onset Reaction(s) Facility (4 sources) MERTHIOLATE drug allergy 6 Pt can't recall, years ago [place] [facility] Work Phone: (1 source) Benzalkonium Drug Allergy [address] [facility] Repository Medications Current Medications Medication Drug Class(es) Dates Sig (Normalized) Sig (Original) baclofen 10 mg oral tablet (1 source) gamma-Aminobutyric Acid-ergic Agonist Start: 07-22-2025 baclofen 10 mg tablet Take 1 tablet by mouth three times a day for muscle spasms for 30 days May have sedative effect. Do not mix with other CLINICAL SOCIAL WORKER depressants. active Marques Gonzalez PA-C, [address] [facility] [address] Greater trochanteric bursitis of right hip [facility] meloxicam 15 mg oral tablet (1 source) Nonsteroidal Anti-inflammatory Drug meloxicam 15 mg tablet Take 1 tablet by mouth active Citlaly Hawleyariane OLIVA [facility] naproxen 500 mg oral tablet (1 source) Nonsteroidal Anti-inflammatory Drug Start: 07-22-2025 Naprosyn 500 mg tablet Take 1 tablet by mouth once a day active Marques Gonzalez PA-C, [address] [facility] [address] Strain of muscle fascia and tendon of right hip subsequent encounter [facility] ondansetron 8 mg oral tablet (1 source) Serotonin-3 Receptor Antagonist Start: 07-22-2025 ondansetron HCl 8 mg tablet Take 1 tablet by mouth every eight hours for nausea for nausea active Marques Gonzalez PA-C, [address] [facility] [address] Strain of muscle fascia and tendon of right hip subsequent encounter [facility] Completed/Discontinued Medications Medication Drug Class(es) Dates Sig (Normalized) Sig (Original) atorvastatin 10 mg oral tablet (5 sources) HMG-CoA Reductase Inhibitor Start: 11-30-2015 take 1 tablet by mouth once daily in the evening LIPITOR 10 MG TABS One tablet by mouth every evening ATORVASTATIN CALCIUM [id number] Keenan Zhu MD rosuvastatin calcium 10 mg oral tablet (8 sources) HMG-CoA Reductase Inhibitor Start: 11-25-2015 End: 11-30-2015 take 1 tablet by mouth at bedtime CRESTOR 10 MG TABS One tablet by mouth at bedtime. ROSUVASTATIN CALCIUM [id number] Keenan Zhu MD Problems Active Problems Problem Classification Problem Date Documented Date Episodic/Chronic Coronary atherosclerosis and other heart disease (1 source) Atherosclerotic heart disease of [place] coronary artery without angina pectoris; Translations: [Atherosclerotic heart disease of [place] coronary artery without angina pectoris] Onset: 09-07-2025 Chronic Disorders of lipid metabolism (4 sources) Hyperlipidemia; Translations: [Hyperlipidemia, unspecified] Onset: 11-10-2015 11-10-2015 Chronic Other circulatory disease (4 sources) Disorder of carotid artery; Translations: [Occlusion and stenosis of unspecified carotid artery] Onset: 11-24-2015 11-24-2015 Chronic Peripheral and visceral atherosclerosis (4 sources) Atherosclerosis of artery ; Translations: [Unspecified atherosclerosis] Onset: 11-24-2015 11-24-2015 Chronic Unclassified (3 sources) Specialized medical examination ; Translations: [Encounter for screening, unspecified] Onset: 05-24-2017 05-24-2017 Unclassified (1 source) Long-term drug therapy; Translations: [Other care home (current) drug therapy] Onset: 11-10-2015 11-10-2015 Past or Other Problems Problem Classification Problem Date Documented Da te Episodic/Chronic Other aftercare (3 sources) 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; Translations: [Other care home (current) drug therapy] Onset: 11-10-2015 11-10-2015 Episodic Other connective tissue disease (1 source) Trochanteric bursitis; Translations: [Trochanteric bursitis, right hip] Onset: 05-19-2024 05-19-2024 Episodic Sprains and strains (1 source) Strain of muscle, fascia and tendon of right hip, subsequent encounter; Translations: [Other specified aftercare] Onset: 04-28-2025 04-28-2025 Episodic Results Test Name Value Interpretation Reference Range Facility Cardiology Visit Reporton Cardiology Visit Report [facility] [address] [place], [place] [address] OFFICE VISIT Date of Service: 09/03/25 MR#: [id number] Acct: [id number] Name: ORTIZ FARIA Rep #: [id number] : 1950 Provider: Dr. Keenan Zhu MD Age/Sex: 75/M [place] [facility] [place] Signed HPI HPI History of Present Illness Details: Pleasant 75-year-old man with a history of hyperlipidemia who has been on medication as well as a mildly elevated calcium score. He has been doing well denying any chest pain or shortness breath or paroxysmal nocturnal dyspnea or pedal edema he did. Once upon a time have elevated liver function tests from chronic hepatitis proven by liver biopsy.??? He has been doing quite well since his last visit. He underwent a stress test in March 2021 which demonstrated no evidence of ischemia at a workload of 11.7 metabolic equivalents with preserved ejection fraction. He remember his calcium score was 98.7. He tells me that he has had a knee replacement as well as a hip replacement done. He has had no dizziness or diaphoresis no near syncope or syncope.??? He remains quite active.??? His physical exam today demonstrated clear lung massey regular rate and rhythm no pedal edema. Intake Vital Signs 05/29/24 15:18 09/03/25 14:12 Height 5 ft 10 in 5 ft 10 in Weight: 223 lb BMI 32.0 BP 162/79 H Blood Pressure Location Lt brachial Position Sitting Respiration 16 Pulse 58 L Pulse Source Monitor Intake Visit Reasons: 1 Y FU Pattern Carrier Required: No Accompanied by: Self Is patient in pain?: No Allergies benzalkonium chloride (From Merthiolate (benzalkonium)) Allergy (Mild, Verified 09/03/25 14:19) rash Medications ???Medication ???Instructions ???Recorded ???Confirmed ???Type multivitamin,tx-iro n-minerals 1 tab PO DAILY 08/11/19 09/03/25 H istory (Complete Multivitamin tablet) meloxicam 15 mg tablet 15 mg PO DAILY PRN 05/29/24 History atorvastatin 10 mg tablet See Rx Instructions .Route 5 09/03/25 Rx .COMPLEX #45 tabs vitamin B complex 1 tab PO QDAY 09/03/25 09/03/25 Hi story Have you fallen in the past year?: No PFSH Medical History (Updated 09/03/25 @ 14:25 by Farida Mathews RN) Hx of dislocation of shoulder Elevated coronary artery calcium score Right carotid bruit Obesity Umbilical hernia Umbilical hernia without obstruction or gangrene Inguinal hernia of left side without obstruction or gangrene Hyperlipidemia Sleep apnea Osteoarthritis Surgical History History of hip replacement History of knee replacement History of umbilical hernia repair (09/2019) History of inguinal hernia repair (09/2019) History of colonoscopy History of appendectomy History of bilateral cataract extraction History of arthroscopy of both knees History of rotator cuff surgery History of bilateral carpal tunnel release (08/2019) Family History Mother Cancer brain cancer Hypertension Heart disease Grandmother Colon cancer Other CAD (coronary artery disease) Social History Smoking Status: Never smoker ROS Const Const: Negative for fatigue, weakness, daytime sleepiness or difficulty sleeping ENT ENT: Negative for dizziness or Nosebleed/epistaxis Cardio Chest Pain: No Palpitations: No Edema: Bilateral (BLE trace at times) Resp Respiratory: Negative for SOB with activity, SOB at rest, SOB orthopnea SOB lying down or Cough GI GI: Negative nausea, vomiting or heartburn Neuro Neuro: Negative for dizziness, lightheadedness, near syncope or weakness Endo Endo: Negative for fatigue Cardiology Exam Const Appearance: cooperative, healthy appearing, no acute distress, well developed and well groomed Nutritional Appearance: average body habitus and well nourished Orientation: alert, awake and oriented x3 Head Head: normal to inspection, normocephalic and atraumatic Ears: hearing grossly normal bilaterally and external ears normal Nose: external nose normal, nares normal, nasal mucous membranes and turbinates normal, septum normal and no nasal discharge Face and Sinus: face symmetric Mouth: oral mucosae normal, tongue normal, oropharynx normal and moist mucous membranes Teeth and gingiva: dentition normal Throat: posterior oropharynx normal, tonsils normal and uvula midline Eyes General: appearance normal, both eyes and all related structures Eyelids: eyelids normal Conjunctivae: conjunctivae normal Pupils: PERRL, normal by confrontation and accommodation normal EOM: EOM intact bilaterally Neck Neck: normal visual inspection, trachea midline and no JVD JVD: +5 Caroti (more content not included)... Normal [facility] Relevant diagnostic tests/la boratory data Narrativeon 08-07-2025 Fall risk assessment no [employer] Work Phone: MEDS REVIEW Done [employer] Work Phone: MEDS REVIEWD Medications reviewed without changes [employer] Work Phone: CBC W/Diff, Automatedon 06-05 Absolute Lymph 1.63 X10 3/uL Normal 0.83-4.[address] [facility] Comment on above: Order Comment: Order Date: 06/22/25 Order Info: 0184-1 - CBCD Performed By: #### L 500.4100, L500.4050, L100.0100 #### [facility] [address] [place], [address] Absolute Neut 2.0 X10 3/uL Normal 2.0-7.[address] [facility] Comment on above: Order Comment: Order Date: 06/22/25 Order Info: [id number]- - CBCD Performed By: #### L 500.4100, L500.4050, L100.0100 #### [facility] [address] [place], [address] Basophils/100 WBC (Bld) 0.5 % Normal 0-[address] [facility] Comment on above: Order Comment: Order Date: 06/22/25 Order Info: 018- - CBCD Performed By: #### L 500.4100, L500.4050, L100.0100 #### [facility] [address] [place], [address] Eosinophils/100 WBC (Bld) 2.4 % Normal 0-[address] [facility] Comment on above: Order Comment: Order Date: 06/22/25 Order Info: 018- - CBCD Performed By: #### L 500.4100, L500.4050, L100.0100 #### [facility] [address] [place], [address] Erythrocyte distribution width (RBC) [Ratio] 13.1 % Normal 11.6-14.[address] [facility] Comment on above: Order Comment: Order Date: 06/22/25 Order Info: 0184- - CBCD Performed By: #### L 500.4100, L500.4050, L100.0100 #### [facility] [address] [place], [address] Hematocrit (Bld) [Volume fraction] 41.6 % Normal 40-[address] [facility] Comment on above: Order Comment: Order Date: 06/22/25 Order Info: [id number] - CBCD Performed By: #### L 500.4100, L500.4050, L100.0100 #### [facility] [address] [place], [address] Hemoglobin (Bld) [Mass/Vol] 13.7 g/dL Normal 13.0-16.[address] [facility] Comment on above: Order Comment: Order Date: 06/22/25 Order Info: [id number] - CBCD Performed By: #### L 500.4100, L500.4050, L100.0100 #### [facility] [address] [place], [address] IG% 0.000 Normal 0.0-0.[address] [facility] Comment on above: Order Comment: Order Date: 06/22/25 Order Info: [id number] - CBCD Result Comment: IG% - Immature Granulocytes (promyelocytes, myelocytes and metamyelocytes) > 1% indicates that a LEFT SHIFT is Present. Performed By: #### L 500.4100, L500.4050, L100.0100 #### [facility] [address] [place], [address] Lymphocytes/100 WBC (Bld) 39.6 % Normal 19-[address] [facility] Comment on above: Order Comment: Order Date: 06/22/25 Order Info: [id number] - CBCD Performed By: #### L 500.4100, L500.4050, L100.0100 #### [facility] [address] [place], [address] MCH (RBC) [Entitic mass] 31.5 pg Normal 27.0-32.[address] [facility] Comment on above: Order Comment: Order Date: 06/22/25 Order Info: [id number] - CBCD Performed By: #### L 500.4100, L500.4050, L100.0100 #### [facility] [address] [place], [address] MCHC (RBC) [Mass/Vol] 32.9 g/dL Normal 32-36 [facility] Comment on above: Order Comment: Order Date: 06/22/25 Order Info: 0184-1 - CBCD Performed By: #### L 500.4100, L500.4050, L100.0100 #### [facility] [address] [place], [address] MCV (RBC) [Entitic vol] 95.6 fL High 80-[address] [facility] Comment on above: Order Comment: Order Date: 06/22/25 Order Info: 018- - CBCD Performed By: #### L 500.4100, L500.4050, L100.0100 #### [facility] [address] [place], [address] Monocytes/100 WBC (Bld) 9.5 % Normal 0-[address] [facility] Comment on above: Order Comment: Order Date: 06/22/25 Order Info: 018- - CBCD Performed By: #### L 500.4100, L500.4050, L100.0100 #### [facility] [address] [place], [address] Neutrophils/100 WBC (Bld) 48.0 % Normal 47-[address] [facility] Comment on above: Order Comment: Order Date: 06/22/25 Order Info: 0184-1 - CBCD Performed By: #### L 500.4100, L500.4050, L100.0100 #### [facility] [address] [place], [address] Nucleated RBC (Bld) [#/Vol] 0 10*3/uL Normal 0-[address] [facility] Comment on above: Order Comment: Order Date: 06/22/25 Order Info: 0184-1 - CBCD Performed By: #### L 500.4100, L500.4050, L100.0100 #### [facility] [address] [place], [address] Platelet mean volume (Bld) [Entitic vol] 10.0 fL Normal 6.2-12.[address] [facility] Comment on above: Order Comment: Order Date: 06/22/25 Order Info: 0184-1 - CBCD Performed By: #### L 500.4100, L500.4050, L100.0100 #### [facility] [address] [place], [address] Platelets (Bld) [#/Vol] 177 10*3/uL Normal 150-[address] [facility] Comment on above: Order Comment: Order Date: 06/22/25 Order Info: 018-1 - CBCD Performed By: #### L 500.4100, L500.4050, L100.0100 #### [facility] [address] [place], [address] RBC (Bld) [#/Vol] 4.35 10*6/uL Low 4.6-6.2 [facility] Comment on above: Order Comment: Order Date: 06/22/25 Order Info: 0184-1 - CBCD Performed By: #### L 500.4100, L500.4050, L100.0100 #### [facility] [address] [place], [address] RDW SD 46.5 fl High 35.1-43.[address] [facility] Comment on above: Order Comment: Order Date: 06/22/25 Order Info: 0184-1 - CBCD Performed By: #### L 500.4100, L500.4050, L100.0100 #### [facility] [address] [place], [address] WBC (Bld) [#/Vol] 4.1 10*3/uL Low 4.4-11.0 [facility] Comment on above: Order Comment: Order Date: 06/22/25 Order Info: 0184-1 - CBCD Performed By: #### L 500.4100, L500.4050, L100.0100 #### [facility] [address] [place], [address] Comprehensive Metabolic Prof ilon 06-23-2025 Albumin [Mass/Vol] 4.2 g/dL Normal 3.4-4.8 [facility] Comment on above: Order Comment: Order Date: 06/22/25 Order Info: 0786-1 - CMP Order Info: [id number] - LIPID Performed By: #### L 500.4100, L500.4050, L100.0100 #### [facility] [address] [place], [address] Albumin/Globulin [Mass ratio] 1.6 {ratio} Normal 0.9-2.[address] [facility] Comment on above: Order Comment: Order Date: 06/22/25 Order Info: 0786- - CMP Order Info: [id number] - LIPID Performed By: #### L 500.4100, L500.4050, L100.0100 #### [facility] [address] [place], [address] ALK PHOS 83 U/L Normal 40-[address] [facility] Comment on above: Order Comment: Order Date: 06/22/25 Order Info: 0786-1 - CMP Order Info: [id number] - LIPID Performed By: #### L 500.4100, L500.4050, L100.0100 #### [facility] [address] [place], [address] ALT [Catalytic activity/Vol] 25 U/L Normal <=[address] [facility] Comment on above: Order Comment: Order Date: 06/22/25 Order Info: [id number] - CMP Order Info: [id number] - LIPID Performed By: #### L 500.4100, L500.4050, L100.0100 #### [facility] [address] [place], [address] AST [Catalytic activity/Vol] 32 U/L Normal <=[address] [facility] Comment on above: Order Comment: Order Date: 06/22/25 Order Info: 0786-1 - CMP Order Info: [id number] - LIPID Performed By: #### L 500.4100, L500.4050, L100.0100 #### [facility] [address] [place], [address] Bilirubin [Mass/Vol] 0.56 mg/dL Normal 0.00-1.30 [facility] Comment on above: Order Comment: Order Date: 06/22/25 Order Info: [id number] - CMP Order Info: [id number] - LIPID Performed By: #### L 500.4100, L500.4050, L100.0100 #### [facility] [address] [place], [address] BUN/CRE 22.8 RATIO High 10-[address] [facility] Comment on above: Order Comment: Order Date: 06/22/25 Order Info: [id number] - CMP Order Info: [id number] - LIPID Performed By: #### L 500.4100, L500.4050, L100.0100 #### [facility] [address] [place], [address] Calcium [Mass/Vol] 9.4 mg/dL Normal 7.6-11.0 [facility] Comment on above: Order Comment: Order Date: 06/22/25 Order Info: [id number] - CMP Order Info: [id number] - LIPID Performed By: #### L 500.4100, L500.4050, L100.0100 #### [facility] [address] [place], [address] Chloride [Moles/Vol] 106 mmol/L Normal 98-108 [facility] Comment on above: Order Comment: Order Date: 06/22/25 Order Info: 0786-1 - CMP Order Info: [id number] - LIPID Performed By: #### L 500.4100, L500.4050, L100.0100 #### [facility] [address] [place], [address] CO2 [Moles/Vol] 25.0 mmol/L Normal 21.0-32.[address] [facility] Comment on above: Order Comment: Order Date: 06/22/25 Order Info: 0786- - CMP Order Info: [id number] - LIPID Performed By: #### L 500.4100, L500.4050, L100.0100 #### [facility] [address] [place], [address] Creatinine [Mass/Vol] 0.95 mg/dL Normal 0.70-1.20 [facility] Comment on above: Order Comment: Order Date: 06/22/25 Order Info: 07 - CMP Order Info: [id number] - LIPID Performed By: #### L 500.4100, L500.4050, L100.0100 #### [facility] [address] [place], [address] GAP 11 Normal 5-[address] [facility] Comment on above: Order Comment: Order Date: 06/22/25 Order Info: 0786 - CMP Order Info: [id number] - LIPID Performed By: #### L 500.4100, L500.4050, L100.0100 #### [facility] [address] [place], [address] GFR/1.73 sq M.predicted among non-blacks MDRD (S/P/Bld) [Vol rate/Area] 84 mL/min/{1.73_m2} Normal >[address] [facility] Comment on above: Order Comment: Order Date: 06/22/25 Order Info: 0786- - CMP Order Info: [id number] - LIPID Result Comment: mL/m in/1.73m2 CKD-EPI Creatinine Equation (2020) Performed By: #### L 500.4100, L500.4050, L100.0100 #### [facility] [address] [place], [address] Globulin (S) [Mass/Vol] 2.6 g/dL Normal 2.2-4.[address] [facility] Comment on above: Order Comment: Order Date: 06/22/25 Order Info: [id number] - CMP Order Info: [id number] - LIPID Performed By: #### L 500.4100, L500.4050, L100.0100 #### [facility] [address] [place], [address] Glucose [Mass/Vol] 112 mg/dL High 70-99 [facility] Comment on above: Order Comment: Order Date: 06/22/25 Order Info: 0786- - CMP Order Info: [id number] - LIPID Performed By: #### L 500.4100, L500.4050, L100.0100 #### [facility] [address] [place], [address] Potassium [Moles/Vol] 4.4 mmol/L Normal 3.3-5.1 [facility] Comment on above: Order Comment: Order Date: 06/22/25 Order Info: 0786- - CMP Order Info: [id number] - LIPID Performed By: #### L 500.4100, L500.4050, L100.0100 #### [facility] [address] [place], [address] Sodium [Moles/Vol] 143 mmol/L Normal 133-145 [facility] Comment on above: Order Comment: Order Date: 06/22/25 Order Info: 0786-1 - CMP Order Info: [id number] - LIPID Performed By: #### L 500.4100, L500.4050, L100.0100 #### [facility] [address] [place], [address] T PROT 6.7 g/dL Normal 5.9-8.[address] [facility] Comment on above: Order Comment: Order Date: 06/22/25 Order Info: 0786-1 - CMP Order Info: [id number] - LIPID Performed By: #### L 500.4100, L500.4050, L100.0100 #### [facility] [address] [place], [address] Urea nitrogen [Mass/Vol] 22 mg/dL High 4-[address] [facility] Comment on above: Order Comment: Order Date: 06/22/25 Order Info: 0786- - CMP Order Info: [id number] - LIPID Performed By: #### L 500.4100, L500.4050, L100.0100 #### [facility] [address] [place], [address] Lipid Profileon 06-23-2025 CHOL:HDL 3.[address] [facility] Comment on above: Order Comment: Order Date: 06/22/25 Order Info: [id number] - CMP Order Info: [id number] - LIPID Performed By: #### L 500.4100, L500.4050, L100.0100 #### [facility] [address] [place], [address] Cholesterol [Mass/Vol] 197 mg/dL Normal <=[address] [facility] Comment on above: Order Comment: Order Date: 06/22/25 Order Info: 0786- - CMP Order Info: [id number] - LIPID Result Comment: Chol esterol level, Desirable <200 mg/dL Borderline high cholesterol 200-239 mg/dL High cholesterol >=240 mg/dL Recommendations of the NCEP Adult Treatment Panel for the following risk-cutoff thresholds for the [place] population. Performed By: #### L 500.4100, L500.4050, L100.0100 #### [facility] [address] [place], [address] Cholesterol in HDL [Mass/Vol] 55 mg/dL Normal [facility] Comment on above: Order Comment: Order Date: 06/22/25 Order Info: 0786- - CMP Order Info: [id number] - LIPID Result Comment: Angela onal Cholesterol Education Program (NCEP) guidelines: <40 mg/dL: Low HDL-cholesterol (major risk factor for CHD) >= 60 mg/dL: High HDL-cholesterol (negative risk factor for CHD) HDL-cholesterol is affected by a number of factors, e.g. smoking, exercise, hormones, sex and age. Performed By: #### L 500.4100, L500.4050, L100.0100 #### [facility] [address] [place], [address] Cholesterol in LDL [Mass/Vol] 120 mg/dL Normal [facility] Comment on above: Order Comment: Order Date: 06/22/25 Order Info: 0786-1 - CMP Order Info: [id number] - LIPID Result Comment: Bord fmhpih=871-097 mg/dL Higher Osca=980 mg/dL or greater Friedwald Equation for LDL-C Performed By: #### L 500.4100, L500.4050, L100.0100 #### [facility] [address] [place], [address] Cholesterol in VLDL [Mass/Vol] 23 mg/dL Normal 5-[address] [facility] Comment on above: Order Comment: Order Date: 06/22/25 Order Info: [id number] - CMP Order Info: [id number] - LIPID Performed By: #### L 500.4100, L500.4050, L100.0100 #### [facility] [address] [place], [address] Triglyceride [Mass/Vol] 113 mg/dL Normal [facility] Comment on above: Order Comment: Order Date: 06/22/25 Order Info: [id number] - CMP Order Info: [id number] - LIPID Result Comment: The drugs N-Acetylcysteine and Metamizole may falsely depress this assay. Normal range: <150 mg/dL Borderline High: 150-199 mg/dL High: 200-499 mg/dL Very High: >500 mg/dL Performed By: #### L 500.4100, L500.4050, L100.0100 #### [facility] [address] [place], [address] Lab Report: CBC W/Diff, Auto matedon 05-24-2017 Basophils/100 leukocytes 0.2 % Invalid Interpretation Code 0-1 [facility] Work Phone: [phone] Basophils/100 WBC (Bld) 0.2 % 0-1 [facility] Work Phone: [phone] Eosinophils/100 leukocytes 0.6 % Invalid Interpretation Code 0-5 [facility] Work Phone: [phone] Eosinophils/100 WBC (Bld) 0.6 % 0-5 [facility] Work Phone: [phone] Erythrocyte distribution width Ratio (RBC) 44.4 fL High 35.1-43.9 [facility] Work Phone: [phone] Erythrocyte distribution width Ratio (RBC) 13.4 % 11.6-14.6 [facility] Work Phone: [phone] Erythrocytes (RBC) 4.71 10*6/uL Invalid Interpretation Code 4.6-6.2 [facility] Work Phone: [phone] Hematocrit (HCT) 43.1 % Invalid Interpretation Code 40-54 [facility] Work Phone: [phone] Hematocrit Volume Fraction (Bld) 43.1 % 40-54 [facility] Work Phone: [phone] Hemoglobin (HGB) 14.7 g/dL Invalid Interpretation Code 13.0-16.5 [facility] Work Phone: [phone] Immature granulocytes #/vol (Bld) 0.200 % 0.0-0.9 [facility] Work Phone: [phone] immature granulocytes, percentage of total cells, blood 0.200 % Invalid Interpretation Code 0.0-0.9 [facility] Work Phone: [phone] Lymphocytes 1.82 X10 3/UL Invalid Interpretation Code 0.83-4.51 [facility] Work Phone: [phone] Lymphocytes #/vol (Bld) 1.82 X10 3/UL 0.83-4.51 [facility] Work Phone: Lymphocytes/100 leukocytes 36.6 % Invalid Interpretation Code 19-41 [facility] Work Phone: [phone] Lymphocytes/100 WBC (Bld) 36.6 % 19-41 [facility] Work Phone: [phone] MCH 31.2 pg Invalid Interpretation Code 27.0-32.0 [facility] Work Phone: [phone] MCH Entitic mass (RBC) 31.2 pg 27.0-32.0 [facility] Work Phone: [phone] MCHC 34.1 G/GL Invalid Interpretation Code 32-36 [facility] Work Phone: [phone] MCHC mass conc (RBC) 34.1 G/GL 32-[address] [facility] Work Phone: [phone] MCV 91.5 fL Invalid Interpretation Code 80-94 [facility] Work [phone] MCV Entitic volume (RBC) 91.5 fL 80-94 [facility] Work Phone: [phone] Monocytes/100 leukocytes 8.9 % Invalid Interpretation Code 0-10 [facility] Work Phone: [phone] Monocytes/100 WBC (Bld) 8.9 % 0-10 [facility] Work Phone: [phone] neutrophil count, blood 2.7 X10 3/UL Invalid Interpretation Code 2.0-7.7 [facility] Work Phone: [phone] Neutrophils #/vol (Bld) 2.7 X10 3/UL 2.0-7.7 [facility] Work Phone: [phone] Neutrophils/100 leukocytes 53.5 % Invalid Interpretation Code 47-70 [facility] Work [phone] Neutrophils/100 WBC (Bld) 53.5 % 47-70 [facility] Work Phone: [phone] Platelet mean volume Entitic volume (Bld) 10.5 fL 6.2-12.0 [facility] Work Phone: [phone] Platelets 190 10*3/mm3 Invalid Interpretation Code 150-450 [facility] Work Phone: [phone] Platelets #/vol (Bld) 190 10*3/mm3 150-450 [facility] Work Phone: [phone] PMV by Misa 10.5 fL Invalid Interpretation Code 6.2-12.0 [facility] Work Phone: [phone] RBC #/vol (Bld) 4.71 10*6/uL 4.6-6.2 [facility] Work Phone: [phone] RDW-CA 13.4 % Invalid Interpretation Code 11.6-14.6 [facility] Work Phone: [phone] red blood cell distribution width, size density 44.4 fL High 35.1-43.9 [facility] Work Phone: [phone] WBC #/vol (Bld) 5.0 10*3/uL 4.4-11.0 [facility] Work Phone: [phone] WBC (Leukocytes) 5.0 10*3/uL Invalid Interpretation Code 4.4-11.0 [facility] Work Phone: [phone] Lab Report: Lipid Profileon 05-24-2017 Cholesterol in HDL mass conc 59 mg/dL Invalid Interpretation Code [facility] Work Phone: [phone] Cholesterol in LDL mass conc 116 mg/dL Invalid Interpretation Code 0-130 [facility] Work Phone: [phone] Cholesterol mass conc 201 mg/dL High 200 [facility] Work Phone: [phone] Lipoprotein.pre-beta mass conc 26 mg/dL Invalid Interpretation Code 5-40 [facility] Work Phone: [phone] Triglyceride mass conc 128 mg/dL Invalid Interpretation Code [facility] Work Phone: [phone] Lab Report: Liver Profileon 05-24-2017 Albumin mass conc 4.3 g/dL Invalid Interpretation Code 3.4-5.0 [facility] Work Phone: [phone] Alkaline phosphatase (ALP) 88 U/L Invalid Interpretation Code 45-117 [facility] Work Phone: [phone] ALP enzyme act/vol (Bld) 88 U/L 45-117 [facility] Work Phone: [phone] ALT enzyme act/vol 29 U/L Invalid Interpretation Code 12-78 [facility] Work Phone: [phone] AST enzyme act/vol 22 U/L Invalid Interpretation Code 15-37 [facility] Work Phone: [phone] Bilirubin mass conc 0.80 mg/dL Invalid Interpretation Code 0.20-1.00 [facility] Work Phone: [phone] Bilirubin.direct mass conc 0.15 mg/dL Invalid Interpretation Code 0.00-0.30 [facility] Work Phone: [phone] Globulin 3.7 g/dL High 2.3-3.5 [facility] Work Phone: [phone] Globulin mass conc (S) 3.7 g/dL High 2.3-3.5 [facility] Work Phone: [phone] Protein mass conc 8.0 g/dL Invalid Interpretation Code 6.4-8.2 [facility] Work Phone: [phone] Lab Report: PSA,Total - Pamela al Screenon 05-24-2017 prostate specific antigen (PSA) screening 0.57 ng/mL Invalid Interpretation Code 0.00-4.00 [facility] Work Phone: [phone] Protein mass conc 0.57 ng/mL 0.00-4.00 [facility] Work Phone: [phone] Lab Report: Basic Metabolic Profile (BMP)on 01-07-2016 Anion gap 5 mmol/L Invalid Interpretation Code 5-15 [facility] Work Phone: [phone] Anion gap molar conc 5 mmol/L 5-[address] [facility] Work Phone: [phone] BUN/Creatinine Ratio 17.9 RATIO Invalid Interpretation Code 10-20 [facility] Work Phone: [phone] Calcium 8.9 mg/dL Invalid Interpretation Code 8.5-10.1 [facility] Work Phone: [phone] Chloride 109 mmol/L High 98-107 [facility] Work Phone: [phone] CO2 29.0 mmol/L Invalid Interpretation Code 21.0-32.0 [facility] Work Phone: [phone] CO2 ppres (BldV) 29.0 mmol/L 21.0-32.0 [facility] Work Phone: [phone] Creatinine 1.06 mg/dL Invalid Interpretation Code 0.70-1.30 [facility] Work Phone: [phone] eGFR (non-black) 90 mL/min/{1.73_m2} Invalid Interpretation Code >60 [facility] Work Phone: [phone] eGFR (non-black) 74 mL/min/{1.73_m2} Invalid Interpretation Code >60 [facility] Work Phone: [phone] EST GFR - AA 90 mL/min >60 [facility] Work Phone: [phone] Glucose 79 mg/dL Invalid Interpretation Code 70-110 [facility] Work Phone: [phone] Glucose mass conc 79 mg/dL 70-110 [facility] Work Phone: [phone] Potassium 3.8 mmol/L Invalid Interpretation Code 3.5-5.1 [facility] Work Phone: [phone] Sodium 143 mmol/L Invalid Interpretation Code 136-145 [facility] Work Phone: [phone] Urea nitrogen 19 mg/dL High 7-18 [facility] Work Phone: [phone] Lab Report: Lipid Profileon 01-07-2016 Cholesterol 166 mg/dL Invalid Interpretation Code 200 [facility] Work Phone: [phone] HDL Cholesterol 57 mg/dL Invalid Interpretation Code [facility] Work Phone: [phone] LDL Cholesterol 93 mg/dL Invalid Interpretation Code 0-130 [facility] Work Phone: [phone] Triglyceride 79 mg/dL Invalid Interpretation Code [facility] Work Phone: [phone] very low density lipoproteins 16 mg/dL Invalid Interpretation Code 5-40 [facility] Work Phone: [phone] Lab Report: Liver Profileon 01-07-2016 Alanine aminotransferase (ALT) 28 U/L Invalid Interpretation Code 12-78 [facility] Work Phone: [phone] Albumin 4.0 g/dL Invalid Interpretation Code 3.4-5.0 [facility] Work Phone: [phone] Alkaline phosphatase (ALP) 68 U/L Invalid Interpretation Code 50-136 [facility] Work Phone: [phone] Aspartate aminotransferase (AST) 23 U/L Invalid Interpretation Code 15-37 [facility] Work Phone: [phone] Bilirubin (direct) 0.17 mg/dL Invalid Interpretation Code 0.00-0.30 [facility] Work Phone: [phone] Bilirubin (total) 0.60 mg/dL Invalid Interpretation Code 0.20-1.00 [facility] Work Phone: [phone] Globulin 3.3 g/dL Invalid Interpretation Code 2.3-3.5 [facility] Work Phone: [phone] Protein 7.3 g/dL Invalid Interpretation Code 6.4-8.2 [facility] Work Phone: [phone] Office Visiton 11-24-2015 cardiac risk group C Invalid Interpretation Code [facility] Work Phone: [phone] Documentation of current medications (procedure) Done Invalid Interpretation Code [facility] Work Phone: [phone] General cardiovascular disease 10Y risk [#] Avinger.D'Agostino 14 % Invalid Interpretation Code [facility] Work Phone: [phone] Protein mass conc Done [facility] Work Phone: [phone] Tobacco smoking status NHIS Never smoker [facility] Work Phone: [phone] Tobacco use CPHS Never smoker Invalid Interpretation Code [facility] Work Phone: [phone] Vital Signs Date Time Vital Sign Value Performing Clinician Facility 08-07-2025 08:15-0400 Body height 178 cm Christos Back MD Work Phone: [facility] 08-07-2025 08:15-0400 Body height 177.8 cm Christos Back MD Work Phone: [facility] 08-07-2025 08:15-0400 Body mass index (BMI) [Ratio] 30.96 kg/m2 Christos Back MD Work Phone: [facility] 08-07-2025 08:15-0400 Body weight 98 kg Christos Back MD Work Phone: [facility] 08-07-2025 08:15-0400 Body weight 97.52 kg Christos Back MD Work Phone: [facility] 08-07-2025 08:15-0400 HGHTCHNVIS Christos Back MD Work Phone: [facility] 08-07-2025 08:15-0400 VITALSDONE Christos Back MD Work Phone: [facility] 11-24-2015 16:11-0500 BP Diastolic 78 mm[Hg] Celena Rodrigez RN [facility] Work Phone: 11-24-2015 16:11-0500 BP Systolic 138 mm[Hg] Celena Rodrigez RN [facility] Work Phone: 11-24-2015 16:11-0500 Pulse (Heart Rate) 64 /min Celena Rodrigez RN [facility] Work Phone: 11-24-2015 16:11-0500 Respiratory Rate 16 /min Celena Rodrigez RN [facility] Work Phone: 11-24-2015 16:11-0500 Weight 97.52 kg Celena Rodrigez RN [facility] Work Phone: Encounters Encounter Date Encounter Type Care Provider Facility Start: 09-29-2025 ambulatory [facility] Facility:[facility] Start: 09-03-2025 End: 09-03-2025 ambulatory [facility] Facility:[facility] Start: 08-07-2025 In-person encounter Christos Bynum MD Work Phone: [facility] Work Phone: Start: 08-07-2025 Visit out of hours Christos seals MD Work Phone: [employer] Work Phone: Start: 06-29-2025 Encounter for other preprocedural examination Bhavik Wall [facility] Start: 06-23-2025 End: 06-23-2025 ambulatory Bhavik Wall Facility:[facility] Procedures Date Procedure Procedure Detail Performing Clinician Start: 08-07-2025 Blood pressure scree shellie not performed - reason not given Christos Back MD Work Phone: Start: 08-07-2025 BMI outside of gabriel l parameters - no follow-up plan/reason not given Christos Back MD Work Phone: Start: 08-07-2025 Current tobacco non- user cad cap copd pv dm Christos Back MD Work Phone: Start: 08-07-2025 Documentation of cur rent medications Christos Back MD Work Phone: Start: 08-07-2025 Pain assessment docu mented as negative - follow-up not required Christos Back MD Work Phone: Start: 05-24-2017 Specialized medical examination Health screening Patience Drake PA-C Start: 01-06-2016 End: 01-07-2016 *Hepatic Function Panel Pilo Hester Start: 01-06-2016 End: 01-07-2016 Lipid panel [AGGREGATE] Pilo Hester Start: 11-10-2015 End: 11-23-2015 *Hepatic Function Panel Pilo Hester Start: 11-10-2015 End: 11-23-2015 Lipid panel [AGGREGATE] Pilo Hester Plan of Treatment Date Care Activity Detail Author Start: 11-26-2017 End: 06-06-2017 *Hepatic Function Panel *Hepatic Function Panel [facility] Work Phone: Start: 11-26-2017 End: 06-06-2017 Lipid panel [AGGREGATE] *Lipid Profile CC PCP [facility] Work Phone: Start: 05-24-2017 End: 05-24-2017 CBC W Auto Differential panel - Blood *CBC without Diff [facility] Work Phone: Start: 05-24-2017 End: 05-24-2017 PSA screening PSA [facility] Work Phone: Start: 04-11-2016 End: 01-11-2016 *Hepatic Function Panel *Hepatic Function Panel [facility] Work Phone: Start: 04-11-2016 End: 01-11-2016 Lipid panel [AGGREGATE] *Lipid Profile CC PCP [facility] Work Phone: Start: 01-06-2016 End: 01-07-2016 *Hepatic Function Panel *Hepatic Function Panel [facility] Work Phone: Start: 01-06-2016 End: 01-07-2016 Lipid panel [AGGREGATE] *Lipid Profile CC PCP [facility] Work Phone: Start: 11-24-2015 End: 11-25-2015 Arterial exam Arterial exam [facility] Work Phone: Start: 11-24-2015 End: 01-07-2016 Carotid duplex Carotid duplex [facility] Work Phone: Start: 11-24-2015 End: 11-24-2015 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 [facility] Work Phone: Start: 11-24-2015 End: 11-25-2015 Ct thorax w/o dye CT Chest without contrast [facility] Work Phone: Start: 11-24-2015 End: 11-25-2015 Echo exam of abdomen US Abdominal (aneurysm screening) [facility] Work Phone: Start: 11-24-2015 End: 11-24-2015 Follow Up Appt 1 year Follow Up Appt 1 year [facility] Work Phone: Start: 11-10-2015 End: 11-23-2015 *Hepatic Function Panel *Hepatic Function Panel [facility] Work Phone: Start: 11-10-2015 End: 11-23-2015 Lipid panel [AGGREGATE] *Lipid Profile CC PCP [facility] Work Phone: Patient Education [facility] Work Phone: Payers Date Payer Category Payer Medicare [id number] 2025 Self-pay 2024 Unknown [id number] 2022 Medicare [id number] Unknown [id number] Unknown [id number] Unknown [id number] Social History Date Type Detail Facility Start: 08-07-2025 social history reviewed E&M Done [employer] Work Phone: Family History No Family History Records Found Family Member Condition Full Brother Alive Father Mother Summary Purpose Advance Directives No Advanced Directives Records Found Additional Source Comments REASON FOR VISIT (unrecogniz ed section and content) right hip post Right hip sco pe with greater trochanteric bursectomy iliotibial band resection and lysis of adhesions. on 07/23/2025, Postop - 1st visit (unrecognized sect ion and content) No Status Records Found INFORMATION SOURCE (unrecogn ized section and content) DATE CREATED AUTHOR 09/08/2025 [facility] FOR RECORDS PERTAINING TO PATIENTS WHO ARE OR HAVE BEEN ENROLLED IN A CHEMICAL DEPENDENCY/SUBSTANCEABUSE PROGRAM, SOME INFORMATION MAY BE OMITTED. This clinical summary was aggregated from multiple sources. Caution should be exercised in using it in the provision of clinical care. This summary normalizes information from multiple sources, and as a consequence, information in this document may materially change the coding, format and clinical context of patient data. In addition, data may be omitted in some cases. CLINICAL DECISIONS SHOULD BE BASED ON THE PRIMARY CLINICAL RECORDS. [facility] [employer] [facility] provides no warranty or guarantee of the accuracy or completeness of information in this document.
--- NOTE | 2025-10-22 13:18 | STRESSREP ---
Stress Test Report Exercise myocardial perfusion stress test. Date Test Performed: 10/22/2025 75-year-old man with a history of elevated calcium score. Stress protocol: Resting EKG demonstrates normal sinus rhythm with a rate of 52 bpm resting blood pressure is 132/72 mmHg. The patient exercised according to the regular Rosas protocol for a total duration of 9 minutes attaining a maximum heart rate of 141 bpm which was 97% of maximum predicted heart rate; the maximum workload was 10.1 metabolic equivalents. At rest there were no ST or T wave changes noted to suggest ischemia and at peak exercise upsloping ST changes only were noted which did not meet the criteria for ischemia. No clinical angina was noted the test was terminated due to the target heart rate being achieved/fatigue. The peak blood pressure was 202/70 mmHg. Rate-pressure product was 28,400. Myocardial perfusion protocol. 14.5 mCi of technetium 99m sestamibi was injected at rest. The patient exercised according to regular Rosas protocol for total duration of 9 minutes and at peak exercise 44.8 mCi of technetium 99m sestamibi was injected stress images were obtained stress and rest images were reconstructed in comparing the short axis vertical long and horizontal long axis. Gated images were also obtained. Perfusion SPECT analysis: Review of the stress images demonstrate normal uptake of tracer noted in all areas of the myocardium. The resting images similarly demonstrate normal uptake of tracer noted in all areas of the myocardium. No areas of reversibility are noted to suggest ischemia no previous infarct was noted. Gated SPECT analysis: The gated ejection fraction is 61%. Conclusion: Normal exercise myocardial perfusion stress test at a high workload.
== END | disposition home or self-care (01) ==
LOC: CVS 06:14
PROVIDERS: PCP Family Medicine; Referring Provider Nurse Practitioner Family; Visit Provider Nurse Practitioner Family
DX: R93.1 Abnormal findings on diagnostic imaging of heart and coronary circulation (principal); I25.10 Atherosclerotic heart disease of native coronary artery without angina pectoris; E78.5 Hyperlipidemia, unspecified
CPT/HCPCS: 78452; 93017; A9500